=== PATIENT | female | born 1985 | race African-American/Black ===

== ENCOUNTER 2016-10-06 04:37 | Inpatient (IN) | payer OTHER ==
[2016-10-06] VITALS (12 sets, daily range): BP systolic 121–141; BP diastolic 68–96
[~2016-10-06] VITALS: Ht 165.1 cm; Wt 84.4 kg
[2016-10-06] MEDS ORDERED: Magnesium 1GM/D5W 100ML PREMIX 100 ML IV ONE (04:38)
[2016-10-06] MEDS ORDERED: methylPREDNISolone SOD SUCC 125 MG/2ML VIAL ONE (04:38)
[2016-10-06] MEDS ORDERED: IV SET PRIMARY 1 EA INFUS.SET MC ONE (04:38)
[2016-10-06] MEDS ORDERED: Magnesium 1GM/D5W 100ML PREMIX 200 ML IV ONE (04:40)
[2016-10-06] MEDS ORDERED: EPINEPHRINE (1:1000) 1 MG/ML AMPUL ONE ×2 (04:43→05:38)
--- NOTE | 2016-10-06 04:45 | NUR ---
JUAN LUIS RA39 FROM HOME. ASTHMA EXACERBATION SINCE 0000. HOME NEB TX INEFFECTIVE. PT ALSO RECEIVED ALBUTEROL 5MG TX FROM [facility] DURING TRANSPORT TO ER. PT SPEAKING 2-WORD SENTENCES; IN TRIPOD POSITION. A+OX4. SKIN WARM, DRY. TACHYPNIC WITH AUDIABLE WHEEZES WHEN PT ATTEMPTS TO SPEAK. PT SHEETED TO ER BED 05. DR. GOLDSTEIN AT BEDSIDE FOR EVAL. RT CALLED FOR BIPAP.
[2016-10-06] MEDS ORDERED: ALBUTEROL FS 2.5 MG/3 ML VIAL.NEB ONE (04:46)
[2016-10-06] MEDS ORDERED: IPRATROPIUM NEB FS 0.5 MG/2.5 ML AMPUL.NEB ONE (04:47)
[2016-10-06] MEDS ORDERED: ALBUTEROL FS 2.5 MG/3 ML VIAL.NEB NEB ONE ×2 (05:00→06:00)
[2016-10-06] MEDS ORDERED: IPRATROPIUM NEB FS 0.5 MG/2.5 ML AMPUL.NEB NEB ONE ×2 (05:00→06:00)
[2016-10-06] MEDS ORDERED: TERBUTALINE SULFATE 1 MG/ML VIAL SQ ONE (05:00)
[2016-10-06] MEDS ORDERED: methylPREDNISolone SOD SUCC 125 MG/2ML VIAL IV ONE (05:00)
[2016-10-06] MEDS ORDERED: EPINEPHRINE (1:1000) 1 MG/ML AMPUL SUBCUT ONE ×2 (05:00→06:00)
[2016-10-06 05:17] LABS: BASOPHILS % (AUTO) 0.3 % (0.0-2.0); EOSINOPHILS # (AUTO) 1.4 /CMM (0.0-0.7); EOSINOPHILS % (AUTO) 10.1 % (0.0-6.0); HEMATOCRIT 42 % (33-45); HEMOGLOBIN 13.7 g/dL (11.5-14.8); LYMPHOCYTES # (AUTO) 5.2 /CMM (0.8-4.8); LYMPHOCYTES % (AUTO) 36.8 % (20.0-44.0); MEAN CORPUSCULAR HEMOGLOBIN 28 PG (26.0-33.0); MEAN CORPUSCULAR HGB CONC 33 g/dl (31.0-36.0); MEAN CORPUSCULAR VOLUME 84 fL (82-100); NEUTROPHILS # (AUTO) 6.5 /CMM (1.8-8.9); NEUTROPHILS % (AUTO) 45.8 % (43.0-81.0); PLATELET COUNT (AUTO) 362 /CMM (150-450); RDW COEFFICIENT OF VARIATION 15.3 (11.5-15.0); RED BLOOD CELL COUNT(AUTO) 4.92 MIL/uL (4.0-5.2); WHITE BLOOD COUNT (AUTO) 14.2 K/uL (4.3-11.0)
[2016-10-06 05:19] LABS: CALCIUM, SERUM 8.5 mg/dL (8.5-10.1); CREATININE 0.9 mg/dL (0.6-1.3); POTASSIUM 3.6 mmol/L (3.5-5.1)
[2016-10-06] MEDS ORDERED: TERBUTALINE SULFATE 1 MG/ML VIAL ONE (05:38)
[2016-10-06] MEDS ORDERED: IV NS 0.9% 1,000 ML IV PRN (05:52)
[2016-10-06] MEDS ORDERED: MAG HYDROX/AL HYDROX/SIMETH 30 ML UDC PO PRN (06:00)
[2016-10-06] MEDS ORDERED: MORPHINE SULFATE INJ 2 MG/ML DISP.SYRIN IV PRN (06:00)
[2016-10-06] MEDS ORDERED: ONDANSETRON HCL/PF 4 MG/2 ML VIAL IVP PRN (06:00)
[2016-10-06] MEDS ORDERED: Z GUARD REMEDY 2 OZ OINT TP PRN (06:00)
[2016-10-06] MEDS ORDERED: ALBUTEROL FS 2.5 MG/0.5 ML VIAL.NEB NEB PRN (06:00)
[2016-10-06] MEDS ORDERED: ACETAMINOPHEN 325 MG TABLET PO PRN (06:00)
[2016-10-06] MEDS ORDERED: IPRATROPIUM NEB FS 0.5 MG/2.5 ML AMPUL.NEB NEB PRN (06:00)
[2016-10-06] MEDS ORDERED: ZOLPIDEM TARTRATE 5 MG TABLET PO PRN (06:00)
[2016-10-06] MEDS ORDERED: MAGNESIUM HYDROXIDE 30 ML UDC PO PRN (06:00)
[2016-10-06] MEDS ORDERED: ENOXAPARIN SODIUM 40 MG/0.4 ML DISP.SYRIN SQ SCH (06:00)
[2016-10-06 06:23] LABS: ABG BASE EXCESS -1.8 mmol/L; ABG OXYGEN SATURATION 99.1 % (92.0-98.5); ABG PCO2 47.1 mmHg (35.0-45.0); ABG PH 7.333 (7.350-7.450); COHb 0.5 % (0.5-1.5); MetHb 0.8 % (0.0-1.5); O2Hb 97.8 % (94.0-97.0); SITE, ABG Right Radial
[2016-10-06] MEDS ORDERED: ENOXAPARIN SODIUM 40 MG/0.4 ML DISP.SYRIN SQ ONE (06:31)
[2016-10-06] MEDS ORDERED: IV SET PRIMARY PUMP SET 1 EA INFUS.SET MC ONE ×2 (06:33→18:26)
[2016-10-06] MEDS ORDERED: IV NS 0.9% 1,000 ML ONE (06:33)
[2016-10-06] MEDS: IV NS 0.9% 1,000 ML IV PRN ×2 (06:37→18:31)
--- NOTE | 2016-10-06 07:00 | NUR ---
RN NOTES 0625 AM- ADMITTED A 31 YEARS OLD FEMALE PATIENT FROM ER UNDER DR. CATES DIAGNOSED WITH ASTHMA EXACERBATION WITH HX. OF ASTHMA PER PATIENT SHE HAD BREATHING TX AND MEDICINE AT HOME BUT NOTHING HELPS HER, THAT'S WHY CALLED 911. PT IS AOX4 ABLE TO VERBALIZED FEELINGS. BIPAP PLACED BY RT 15/5 FIO2 40% TOLERATED WELL PLACED ON TELE MONITOR REVEALS ST HR 110. VS TAKEN TEMP 97.5 RESP 21 PULSE 121 BP 133/70 SATING 100%. SKIN IS INTACT. IV SITE ON RAC G 20 AND LAC G 16 INTACT AND PATENT. KEPT PT CLEAN AND COMFORTABLE IN BED. NUNU LIGHT KEPT WITHIN EASY REACH INSTRUCTION PROVIDED. ENDORSED CONTINUITY OF CARE TO AM NURSE.
[2016-10-06] MEDS: ALBUTEROL FS 2.5 MG/0.5 ML VIAL.NEB NEB SCH ×3 (07:24→20:27)
[2016-10-06] MEDS: IPRATROPIUM NEB FS 0.5 MG/2.5 ML AMPUL.NEB NEB SCH ×3 (07:26→20:27)
--- NOTE | 2016-10-06 08:00 | NUR ---
UNDERBASTER NOTE: RECEIVED PATIENT ALERT AND ORIENTED X3 ON BIPAP WITH ORDERED SETTINGS. TOLERATING WELL. ABLE TO MAKE NEEDS KNOWN. NO DISTRESS NOTED. RESPIRATIONS EVEN AND UNLABORED. SINUS TACHYCARDIA ON MONITOR HR 110. IV'S PATENT AND INTACT RAC 20G RUNNING NS @125ML/HR. PATIENT ABLE TO USE BEDPAN. ALL NEEDS MET. SAFETY MAINTAINED. CALL LIGHT PLACED WITHIN REACH. ORIENTATION PROVIDED. ONGOING MONITORING.
[2016-10-06] MEDS: methylPREDNISolone SOD SUCC 125 MG/2ML VIAL IV SCH ×3 (08:51→16:56)
[2016-10-06] MEDS: PANTOPRAZOLE 40 MG VIAL IV SCH (08:51)
--- NOTE | 2016-10-06 09:00 | NUR ---
ENVIRONMENTAL AUDITOR NOTE: PATIENT C/O CHEST PAIN RADIATING TO RIGHT LOWER BACK. PATIENT STATES THAT SHE FEELS PRESSURE WHEN SHE BREATHES. MORPHINE ADMINISTERED. CALL MADE TO DR. BLAKE AND INFORMED MD OF PATIENT'S CONDITIONS. RECEIVED ORDERED FOR TROPONIN AND EKG. RT HAYDEE AT BEDSIDE EKG IN PROGRESS. ONGOING MONITORING.
--- NOTE | 2016-10-06 10:50 | NUR ---
RESPIRATORY TECH NOTE: DR. BLAKE AT BEDSIDE, PATIENT ON 2L 02 VIA NC, NO DISTRESS NOTED. IN STABLE CONDITION. VS STABLE. RECEIVED ORDER FOR REGULAR DIET AND TRANSFER TO [facility]. VERIFIED. WILL CARRY OUT.
--- NOTE | 2016-10-06 11:50 | NUR ---
LAP CUTTER NOTE: BEDSIDE REPORT GIVEN TO KAYLEIGH VILLAFANA FOR CONTINUITY OF CARE.
--- NOTE | 2016-10-06 16:02 | NUR ---
PT TRANSFERRED FROM ICU TO [facility] RM #[id number]. A/O X4 IV SITE INTACT. ON 2L NC. PRODUCTIVE COUGH WITH PINK TINGE THICK SPUTUM NOTED. ORIENTED TO ROOM, BR. CALL LIGHT IN PLACE. BED LOW. WILL CONTINUE PT CARE.
--- NOTE | 2016-10-06 17:10 | NUR ---
RT END OF THE SHIFT REPORT: PT. 31 Y OLD FEMALE REC. @0700 AM ON BIPAP WITH NOTED SETTINGS, ALERT AND RESPONSIVE, HX OF ASTHMA. INLINE TX'S GIVEN B/S WHEEZING BILATERALLY. EQUAL CHEST RISE NOTED. BIPAP REMOVED @0900 PLACED PT. ON 2L/MIN O2 PER DR. CASTREJON ORDER AT THE BEDSIDE. TX' GIVEN HHN Q6 AND NO ADVERSE REACTION NOTED. AMBU BAG AT THE BEDSIDE, PT. REMAIN STABLE AND TRANSFER TO TELE/[facility] & CONTINUE FOR MONITORING REPORT WILL PASS TO PM SHIFT Addendum: 10/06/16 at 1715 by HAYDEE RAMOS RT Amended: Links added. Addendum: 10/06/16 at 1739 by HAYDEE RAMOS RT ORDERS PER DR. BLAKE & DR. CASTREJON
[2016-10-06] MEDS: HYDROCODONE/APAP 5/325MG 1 EACH TABLET PO PRN (18:31)
--- NOTE | 2016-10-06 19:15 | NUR ---
RN INITIAL NOTES RECEIVED PATIENT IN BED, AWAKE AND ALERT X4. PATIENT STILL COMPLAINING OF MILD HEADACHE AT THIS TIME, NORCO WAS GIVEN BY PREVIOUS SHIFT. PER PATIENT, PAIN IS RESOLVING AT THIS TIME. PATIENT ON 2LPM OF O2 VIA NC, RESPIRATION IS EVEN AND UNLABORED, NO DISTRESS. PATIENT DENIES ANY SOB. PATIENT WITH IVF ORDERED OF NS AT 125CC/HR ON PATIENT'S R AC G20, NO SIGNS OF INFILTRATION. PATIENT'S NEEDS ANTICIPATED AND MET. SAFETY AND COMFORT ENSURED. BED IN LOW AND LOCKED POSITION. CALL LIGHT IN REACH. WILL MONITOR.
--- NOTE | 2016-10-06 19:19 | NUR ---
RN NOTES PT REPORTED MILD HEADACHE POST ADM SOLUMEDROL. NORCO GIVEN PRN WITH RELIEF OF PAIN. SAFETY MEASURES IMPLEMENTED. VS STABLE AFEBRILE. IV SITE L AC DRY AND INTACT. NS IVF AT 125ML/HR. ON 2L NC. BREATHING TREATMENTS BY RT SCHEDULE. WILL ENDORSE PT CARE TO NIGHT RN.
[2016-10-07] MEDS: ALBUTEROL FS 2.5 MG/0.5 ML VIAL.NEB NEB SCH ×4 (01:31→19:48)
[2016-10-07] MEDS: IPRATROPIUM NEB FS 0.5 MG/2.5 ML AMPUL.NEB NEB SCH ×4 (01:31→19:48)
--- NOTE | 2016-10-07 02:06 | NUR ---
RN NOTES PATIENT IN BED, SLEEPING COMFORTABLY. PATIENT ON 2LPM OF O2 VIA NC, RESPIRATION IS EVEN AND UNLABORED WITH NO DISTRESS. IVF INFUSING WELL ORDERED, NO INFILTRATION NOTED. PATIENT'S SAFETY AND COMFORT ENSURED. BED IN LOW AND LOCKED POSITION. CALL LIGHT IN REACH.
[2016-10-07 04:00] VITALS: BP 132/85
[2016-10-07] MEDS: IV NS 0.9% 1,000 ML IV PRN (06:01)
--- NOTE | 2016-10-07 06:45 | NUR ---
RN CLOSING NOTES AT 0600, PATIENT ASSISTED WITH ADLS AND BRP NEEDED. SAFETY AND FALL PRECAUTION OBSERVED AT ALL TIMES. PATIENT C/O SOB UPON RETURNING TO BED. EXPIRATIONAL WHEEZING NOTED, PATIENT WITH INCREASED WORK OF BREATHING, PATIENT ASSISTED BACK TO BED, SAFETY AND COMFORT ENSURED. PATIENT POSITIONED HERSELF IN A TRIPOD POSITION, ENCOURAGED PATIENT TO TAKE SLOW, DEEP BREATHS AND TITRATED PATIENT'S O2 AT THIS TIME TO 3LPM PER PATIENT'S TOLERANCE. WITH HELP FOR THE PATIENT. COORDINATED WITH RT FOR PRN BREATHING TREATMENT TO BE ADMINISTERED. PATIENT AT THIS TIME IS COMFORTABLE, NOT IN ANY DISTRESS. RELIEF FROM SOB VERBALIZED. BREATHING IS EVEN AND UNLABORED WITH NO DISTRESS. TITRATED PATIENT'S O2 BACK TO 2LPM VIA NC. PATIENT'S NEEDS ANTICIPATED AND MET. SAFETY AND COMFORT ENSURED. BED IN LOW AND LOCKED POSITION. CALL LIGHT IN REACH. WILL ENDORSE ACCORDINGLY FOR CONTINUITY OF CARE.
[2016-10-07 07:04] LABS: HEMATOCRIT 38 % (33-45); HEMOGLOBIN 12.6 g/dL (11.5-14.8); LYMPHOCYTES # (AUTO) 1.2 /CMM (0.8-4.8); LYMPHOCYTES % (AUTO) 6.1 % (20.0-44.0); MEAN CORPUSCULAR HEMOGLOBIN 28 PG (26.0-33.0); MEAN CORPUSCULAR HGB CONC 33 g/dl (31.0-36.0); MEAN CORPUSCULAR VOLUME 84 fL (82-100); MONOCYTES # (AUTO) 0.8 /CMM (0.1-1.30); MONOCYTES % (AUTO) 4.1 % (2.0-12.0); NEUTROPHILS # (AUTO) 17.5 /CMM (1.8-8.9); NEUTROPHILS % (AUTO) 89.8 % (43.0-81.0); PLATELET COUNT (AUTO) 256 /CMM (150-450); RDW COEFFICIENT OF VARIATION 15.2 (11.5-15.0); WHITE BLOOD COUNT (AUTO) 19.5 K/uL (4.3-11.0)
--- NOTE | 2016-10-07 07:20 | NUR ---
RN NOTES RECEIVED PATIENT IN BED, AWAKE AND ALERT X4. DENIES ANY PAIN OR DISCOMFORT AT THIS TIME. PATIENT ON 2LPM OF O2 VIA NC, RESPIRATION IS EVEN AND UNLABORED, NO DISTRESS. PATIENT DENIES ANY SOB. PATIENT WITH IVF ORDERED OF NS AT 125CC/HR ON PATIENT'S R AC G20, NO SIGNS OF INFILTRATION OR REDNESS. PATIENT'S NEEDS ANTICIPATED AND MET. SAFETY AND COMFORT ENSURED. BED IN LOW AND LOCKED POSITION. CALL LIGHT IN REACH. WILL MONITOR.
[2016-10-07 07:31] LABS: CALCIUM, SERUM 8.8 mg/dL (8.5-10.1); CREATININE 0.7 mg/dL (0.6-1.3); MAGNESIUM 2.1 mg/dL (1.8-2.4); PHOSPHORUS 3.5 mg/dL (2.5-4.9); POTASSIUM 4.3 mmol/L (3.5-5.1)
[2016-10-07 08:00] VITALS: BP 137/90
[2016-10-07] MEDS: HYDROCODONE/APAP 5/325MG 1 EACH TABLET PO PRN (08:14)
[2016-10-07] MEDS: methylPREDNISolone SOD SUCC 125 MG/2ML VIAL IV SCH ×3 (08:15→16:17)
[2016-10-07] MEDS: PANTOPRAZOLE 40 MG VIAL IV SCH (08:15)
[2016-10-07] MEDS: ENOXAPARIN SODIUM 40 MG/0.4 ML DISP.SYRIN SQ SCH (08:20)
[2016-10-07 12:00] VITALS: BP 137/90
--- NOTE | 2016-10-07 18:49 | NUR ---
RN NOTES PATIENT IN BED, AWAKE AND ALERT X4. DENIES ANY PAIN OR DISCOMFORT AT THIS TIME. PATIENT ON 2LPM OF O2 VIA NC, RESPIRATION IS EVEN AND UNLABORED, NO DISTRESS. PATIENT DENIES ANY SOB. PATIENT IV R AC G20, NO SIGNS OF INFILTRATION OR REDNESS. PATIENT'S NEEDS ANTICIPATED AND MET. SAFETY AND COMFORT ENSURED. BED IN LOW AND LOCKED POSITION. CALL LIGHT IN REACH. WILL MONITOR AND ENDORSE TO NEXT SHIFT FOR CONTINUITY OF CARE
[2016-10-07 20:00] VITALS: BP 125/88
--- NOTE | 2016-10-07 20:00 | NUR ---
RECEIVED PATIENT IN BED, AAO, INDEPENDENT. VSS, AFEBRILE, NO DISTRESS NOTED EDUCATION/INSTRUCTIONS GIVEN, QUESTIONS ANSWERED.
[2016-10-08] MEDS: IPRATROPIUM NEB FS 0.5 MG/2.5 ML AMPUL.NEB NEB SCH ×3 (02:14→13:57)
[2016-10-08] MEDS: ALBUTEROL FS 2.5 MG/0.5 ML VIAL.NEB NEB SCH ×3 (02:15→13:57)
[2016-10-08 04:00] VITALS: BP 121/89
--- NOTE | 2016-10-08 07:10 | NUR ---
ms rn initial notes received patient in bed, awake, head of bed elevated, no SOB or distress noted. On 2lpm via NC and tolerated well. Iv intact and patent. Alert and oriented x 4, verbally responsive and able to make needs known. Ambulatory. Denies any pain or discomfort. Kept patient clean and comfortable in bed, call light with in patient reach, will continue to monitor accordingly.
[2016-10-08 08:00] VITALS: BP 113/88
[2016-10-08] MEDS: PANTOPRAZOLE 40 MG VIAL IV SCH (08:18)
[2016-10-08] MEDS: methylPREDNISolone SOD SUCC 125 MG/2ML VIAL IV SCH ×2 (08:18→12:03)
[2016-10-08] MEDS: ENOXAPARIN SODIUM 40 MG/0.4 ML DISP.SYRIN SQ SCH (08:19)
--- NOTE | 2016-10-08 16:00 | NUR ---
MS BINDER TECHNICIAN NOTES discharge instructions given to patient and able to understand instructions. Signed discharge paper and belongings list. Prescription given. health teaching rendered, to follow up with primary health care physician in 1-2 weeks. Skin is intact. Pneumonia not given due to patient is <65 years old. Flu vaccine not given due to out of season. Discontinued IV and pressured applied to prevent bleeding. Patient left the hospital in stable condition no complaint of pain or discomfort noted. Ambulatory. Manuel Mars came and picked up the patient. Vital signs checked and recorded. MD and charge nurse made aware.
== END 2016-10-08 17:23 | disposition home or self-care (01) | DRG 133 ==
LOC: ER 04:40 → ICU 06:23 → MEDSG1 15:11
PROVIDERS: ADMIT Family Medicine; ATTEND Family Medicine
PROC: 5A09357 Assistance with Respiratory Ventilation, Less than 24 Consecutive Hours, Continuous Positive Airway Pressure (ICD-10-PCS; principal; 2016-10-06)
DX: J96.01 Acute respiratory failure with hypoxia (principal); J45.902 Unspecified asthma with status asthmaticus; D72.829 Elevated white blood cell count, unspecified; T38.0X5A Adverse effect of glucocorticoids and synthetic analogues, initial encounter; J96.02 Acute respiratory failure with hypercapnia
CPT/HCPCS: 36415; 36600; 70220-TC; 71010-TC; 80048-TC; 83735-TC; 84100-TC; 84484-TC; 84703-TC; 85025-TC; 87081-TC; 94660; 94799-TC; A4606; C9113; J0171; J1650; J2270; J2930; J3105; J3475; J7030; Z7610

== ENCOUNTER 2017-01-15 10:51 | Emergency (ER) | payer OTHER ==
[~2017-01-15] VITALS: Ht 162.6 cm; Wt 81.6 kg
[2017-01-15 11:05] VITALS: BP 114/74
--- NOTE | 2017-01-15 11:10 | NUR ---
RESPIRATORY THERAPIST CALLED FOR BREATHING TREATMENT
--- NOTE | 2017-01-15 11:10 | NUR ---
PATIEN TO ER BED 11 C/O ASTHMA ATTACK SINCE 299 THIS MORNING, UNRELIEVED WITH HOME INHALER. VITALS SIGNS CHECKED. WAITING FOR MD DEAN.
[2017-01-15] MEDS ORDERED: IPRATROPIUM NEB FS 0.5 MG/2.5 ML AMPUL.NEB ONE ×2 (11:16→19:30)
[2017-01-15] MEDS ORDERED: ALBUTEROL FS 2.5 MG/3 ML VIAL.NEB ONE ×3 (11:16→19:30)
[2017-01-15] MEDS ORDERED: IPRATROPIUM NEB FS 0.5 MG/2.5 ML AMPUL.NEB NEB ONE ×2 (11:30→18:30)
[2017-01-15] MEDS ORDERED: ALBUTEROL FS 2.5 MG/3 ML VIAL.NEB CONTNEB ONE ×3 (11:30→18:30)
[2017-01-15] MEDS ORDERED: Magnesium 1GM/D5W 100ML PREMIX 200 ML IV ONE ×2 (11:56→12:00)
[2017-01-15] MEDS ORDERED: methylPREDNISolone SOD SUCC 125 MG/2ML VIAL ONE (11:59)
[2017-01-15] MEDS ORDERED: IV SET PRIMARY PUMP SET 1 EA INFUS.SET MC ONE (12:00)
[2017-01-15] MEDS ORDERED: methylPREDNISolone SOD SUCC 125 MG/2ML VIAL IV ONE (12:00)
--- NOTE | 2017-01-15 12:00 | NUR ---
BLOOD SPECIMEN SENT TO LAB
--- NOTE | 2017-01-15 12:00 | NUR ---
IV STARTED ON THE RIGHT AC 20. POST BT PATIENT VERBALIZE FEELING BETTER BUT STILL COUGHING, SAT 96% ON ROOM AIR.
[2017-01-15 12:14] LABS: BASOPHILS # (AUTO) 0.1 /CMM (0.0-0.2); BASOPHILS % (AUTO) 2.2 % (0.0-2.0); EOSINOPHILS # (AUTO) 1.3 /CMM (0.0-0.7); EOSINOPHILS % (AUTO) 19.1 % (0.0-6.0); HEMATOCRIT 40 % (33-45); LYMPHOCYTES # (AUTO) 1.8 /CMM (0.8-4.8); LYMPHOCYTES % (AUTO) 27.7 % (20.0-44.0); MEAN CORPUSCULAR HEMOGLOBIN 27 PG (26.0-33.0); MEAN CORPUSCULAR HGB CONC 33 g/dl (31.0-36.0); MEAN CORPUSCULAR VOLUME 83 fL (82-100); MONOCYTES # (AUTO) 0.3 /CMM (0.1-1.30); MONOCYTES % (AUTO) 4.2 % (2.0-12.0); NEUTROPHILS # (AUTO) 3.1 /CMM (1.8-8.9); NEUTROPHILS % (AUTO) 46.8 % (43.0-81.0); PLATELET COUNT (AUTO) 244 /CMM (150-450); RDW COEFFICIENT OF VARIATION 13.8 (11.5-15.0); RED BLOOD CELL COUNT(AUTO) 4.81 MIL/uL (4.0-5.2); WHITE BLOOD COUNT (AUTO) 6.6 K/uL (4.3-11.0)
[2017-01-15 12:26] LABS: CALCIUM, SERUM 8.8 mg/dL (8.5-10.1); CREATININE 0.9 mg/dL (0.6-1.3); POTASSIUM 3.7 mmol/L (3.5-5.1)
--- NOTE | 2017-01-15 12:46 | NUR ---
MAGNESIUM 2GM IV GIVEN.
--- NOTE | 2017-01-15 17:59 | NUR ---
AIDAN CALLED FROM [employer] , WE ARE EXPECTING A CALL FROM A DOCTOR.
--- NOTE | 2017-01-15 18:48 | NUR ---
CALLED [facility] FOR TRANSPORTATION GOING TO [facility] ETA 35 MIN
--- NOTE | 2017-01-15 19:36 | NUR ---
REPORT GIVEN TO EMT FOR TRANSPORT
--- NOTE | 2017-01-15 19:36 | NUR ---
REPORT GIVEN TO ANN VILLAFANA FOR CONTINUITY OF CARE IN [facility]
--- NOTE | 2017-01-15 19:41 | NUR ---
PT REFUSED BREATHING TX. PT INSISTS ON DISCHARGING HERSELF. NURSE NOTIFIED. Addendum: 01/15/17 at 1942 by SELINA KUMAR RT Amended: Links added.
--- NOTE | 2017-01-15 19:49 | NUR ---
IV removed. Catheter intact and site benign. Pressure and 4x4 applied to site. No bleeding noted.
--- NOTE | 2017-01-15 19:51 | NUR ---
Patient does not wish to proceed with medical care recommended by Dr. BLOOM. Patient given information related to possible complications, up to and including , which could occur as a result of leaving the hospital at this time. Patient verbalizes understanding of risks involved due to leaving against medical advice. Patient has signed AMA form. Pt was advice to transfer to [facility] p refused wants to travel to [place] even with DR order that she was not safe to go home.
== END 2017-01-15 19:57 | disposition left against medical advice (07) ==
LOC: ER 10:52
DX: J45.901 Unspecified asthma with (acute) exacerbation (principal)
CPT/HCPCS: 36415; 71010; 80048; 84703; 85025; 94644 ×2; 96365; 96375; 99285; A4606; J2930; J3475; Z7610